=== PATIENT | male | born 1985 | race Two or more races ===

== ENCOUNTER 2024-10-22 02:07 | Emergency (ER) | payer OTHER ==
[~2024-10-22] VITALS: Ht 193 cm; Wt 111.1 kg
[2024-10-22] MEDS ORDERED: KETOROLAC TROMETHAMINE 10 MG TABLET PO STA (04:20)
[2024-10-22 05:06] LABS: URINE APPEARANCE Clear; URINE BILIRRUBIN Negative (NEGATIVE); URINE BLOOD Negative; URINE COLOR Yellow; URINE GLUCOSE Negative (NEGATIVE); URINE KETONE Trace (NEGATIVE); URINE LEUKOCYTE Negative; URINE NITRATE Negative; URINE PROTEIN Negative (NEGATIVE)
[2024-10-22 05:10] LABS: URINE RBC 5.5 uL (0.0-20.8); URINE WBC 18.7 uL (0.0-23.2)
[2024-10-22 05:11] LABS: URINE BACTERIA 3.6 uL (0.0-1933); URINE CAST 0.14 uL (0.0-1.40); URINE EPITHELIAL CELLS 0.4 uL (0.0-38.8)
[2024-10-22] MEDS ORDERED: TAMS0.4C PO (06:24)
== END 2024-10-22 06:36 | disposition home or self-care (01) ==
LOC: ER 02:08
PROVIDERS: General Practice
DX: R10.2 Pelvic and perineal pain (principal)